=== PATIENT | female | born 1980 | race Caucasian/White ===

== ENCOUNTER 2018-10-09 09:48 | Emergency (ER) | payer BC, SELFPAY ==
--- NOTE | 2018-10-09 09:54 | NUR.NOTE ---
pt states that her lower back left shi 10/10 pain for past 4 days pt states that she has been able to make a dental apoint ment next week but can no longer deal with this pain. pt had an script of amox at home that she had juliann taking thinking that her tooth was infected however does not know the dosage
[2018-10-09 09:56] VITALS: BP 153/85; PULSE 68; RESP 18; TEMP 36.4; O2SAT 99
--- NOTE | 2018-10-09 10:12 | ED.GENADUL_ITS ---
Discharge Plan Disposition Patient Disposition: HOME Condition: Stable Discharge Details Chief Complaint: DentalOral Clinical Impression: Pain, dental Primary Care Provider: Jeremias Costello ED Provider: Thomas Eagle Home Meds and New Rx's Prescriptions: New amoxicillin-pot clavulanate 875-125 mg tablet 1 tab PO BID Qty: 14 RF: 0 Discharge Instructions Instructions: Toothache (ED) Additional Instructions: For pain control please take 650-1000 mg of Tylenol along with 600 mg of Motrin every 6 hours as needed for pain control. You may also apply ice pack to your face. If you notice any swelling to your face, fever, or worsening of symptoms you may start the prescribed antibiotic otherwise continue to do appropriate pain control until you see your dentist next week. If you notice any swelling to your tongue or underneath your tongue or to the back your throat please return to the emergency department for reassessment. Referrals: Primary Care Provider [Outside] (Please follow-up with your dental provider as scheduled for appropriate definitive care of your dental pain) Medical Decision Making Patient presenting to the emergency department for chief complaint of dental pain. Patient states that this is been going on for the past 4 days and she took approximately 2-1/2 days worth of Augmentin which did not help her symptoms. She is intermittently and sporadically been using Motrin and Tylenol with minimal benefit. She does state the tooth affected is in her right molar and was previously fractured years ago. Patient denies any fever chills, difficulty breathing, or other symptoms. Physical exam shows a partially fractured tooth #31 without signs of fluctuance, erythema, and otherwise nondiagnostic exam. Patient states that due to this pain being different than previous episodes of dental pain she is concerned about abscess. At this point I see no obvious signs of infection or abscess and thoroughly discussed with patient signs and symptoms of this. Patient does state that she feels some elevation of the tooth but again on physical exam I do not see any obvious signs of infection. Given upcoming weekend did discuss with patient pocket prescription for continued Augmentin and that she may wait 24 hours for look for thoroughly discussed symptoms to begin this medication otherwise appropriate pain control was discussed with patient which she stated she had not been consistent about controlling her pain. Return precautions discussed. After discussion of diagnosis and plan of care patient has no further needs, questions, or concerns and states clear understanding to return to the emergency department for any worsening symptoms. HPI General Mode of arrival: ambulatory . Date/Time Provider Initiated Documentation: 10/09/18 09:57 . Limitations to Documentation: no limitations . Information obtained by: patient . History of Present Illness 38 year old F presents to the emergency department with the chief complaint of Dental pain, described as moderate, with intensity rated at 6. Quality is described as sharp, and is localized to the mouth. Patient started experiencing this day(s) (4) and it has been constant. No relieving factors improve symptom(s), Patient notes no other symptoms.. Patient did receive the following treatments prior to arrival, NSAID Related Data Home Medications Medication Instructions Recorded Confirmed amoxicillin-pot clavulanate 1 tab PO BID #14 tab 10/09/18 Previous Rx's Medication Instructions Recorded amoxicillin-pot clavulanate 1 tab PO BID #14 tab 10/09/18 Allergies Allergy/AdvReac Type Severity Reaction Status Date / Time erythromycin base AdvReac Severe Nausea Unverified 10/09/18 09:58 [Erythromycin Base] General Stated Complaint: DentalOral GINA: 4 Review of Systems Constitutional Denies chills and Denies fever(s) ENT Reports as per HPI, Denies change in voice, Reports dental pain, Denies throat swelling and Denies tongue swelling Cardiovascular Denies chest pain and Denies dyspnea Respiratory Denies dyspnea, Denies stridor and Denies wheezing Allergic/Immunologic Denies throat swelling, Denies tongue swelling and Denies wheezing PFSH Family History Mother No problems noted. Father Diabetes Essential hypertension Heart disease Hyperlipidemia Brother No problems noted. Grandfather Heart disease Stroke Grandfather Neoplasm Grandmother Heart disease Grandmother Diabetes Essential hypertension Hyperlipidemia Son No problems noted. Daughter No problems noted. Maternal Uncle Neoplasm Maternal Aunt Heart disease Hyperlipidemia Great Maternal Grandmother Neoplasm Social History Smoking/Tobacco Use Status: Never Alcohol Intake: never Drug use: Never Substance use type: does not use Do you feel safe at home: Yes Do you feel safe in your relationship?: Yes Exam Const General: cooperative Orientation: alert, awake and oriented x3 Limitations: mental status not altered HENMT Head: normal to inspection, normocephalic and atraumatic Ears: hearing grossly normal bilaterally, normal mastoids bilaterally and no periauricular adenopathy General nose exam: external nose normal Mouth: oropharynx normal, no drooling, no muffled voice, normal tongue and no trismus Teeth and gingiva: caries and other (Partially fractured tooth #31) Throat: posterior oropharynx normal, tonsils normal and uvula midline Eyes General: appearance normal, both eyes and all related structures Pupils: PERRL Neck Neck: normal visual inspection, full ROM, no lymphadenopathy, no meningeal signs, trachea midline, supple, no anterior neck swelling and no midline deformity Resp Effort & Inspection: normal respiratory effort and able to speak in complete sentences Course Vital Signs Temperature 36.4 C 10/09/18 09:56 Pulse 68 10/09/18 09:56 Respiratory Rate 18 10/09/18 09:56 Blood Pressure 153/85 H 10/09/18 09:56 Pulse Oximetry 99 10/09/18 09:56 Temperature 36.4 C 10/09/18 09:56 Temperature Source Skin 10/09/18 09:56 Pulse 68 10/09/18 09:56 Respiratory Rate 18 10/09/18 09:56 Respiratory Effort 10/09/18 09:58 Blood Pressure 153/85 H 10/09/18 09:56 Blood Pressure Position Sitting 10/09/18 09:56 Pulse Oximetry 99 10/09/18 09:56 Oxygen Delivery Method Room Air 10/09/18 09:56 Oxygen Flow Rate 0 10/09/18 09:56 Pain Level 6 10/09/18 09:56
--- NOTE | 2018-10-09 10:17 | NUR.NOTE ---
pt states that when she woke up at 0800 she had abdominal pain nausea vomiting and liquid stools. pt states that her son had the same simptoms for the past few days
== END 2018-10-09 10:30 | disposition home or self-care (01) ==
LOC: ER 10:17
PROVIDERS: Emergency Provider Nurse Practitioner Family; PCP Emergency Medicine
DX: R68.84 Jaw pain (principal); S02.5XXA Fracture of tooth (traumatic), initial encounter for closed fracture; X58.XXXA Exposure to other specified factors, initial encounter
CPT/HCPCS: 99283

== ENCOUNTER 2018-11-23 09:11 | Outpatient (CLI) | payer BC, SELFPAY ==
[2018-11-23 11:03] LABS: ALT 55 U/L (12-78); AST 24 U/L (15-37); Albumin 3.8 g/dL (3.4-5.0); Alkaline Phosphatase 101 U/L (46-116); Anion Gap 8.9 mmol/L (3-11); BUN 11 mg/dL (7-18); Bilirubin, Total 0.7 mg/dL (0.2-1.0); CO2 28.1 mmol/L (21.0-32.0); CREATININE 0.79 mg/dL (0.55-1.02); Calcium 9.3 mg/dL (8.5-10.1); Chloride 101 mmol/L (98-107); Glucose 99 mg/dL (70-100); Potassium 4.5 mmol/L (3.5-5.1); Sodium 138 mmol/L (136-145); Total Protein 7.3 g/dL (6.4-8.2)
[2018-11-23 11:08] LABS: Abs Immature Grans 0.02 k/cumm (0.0-0.09); Absolute Basophil Count 0.02 k/cumm (0.0-0.2); Absolute Eosinophil Count 0.02 k/cumm (0.0-0.7); Absolute Lymphocyte Count 0.66 k/cumm (1.2-3.4); Absolute Monocyte Count 0.71 k/cumm (0.11-0.7); Absolute Neutrophil Count 4.84 k/cumm (1.2-6.7); Basophils % 0.3; Eosinophils % 0.3; HCT 34.9 % (36.0-46.0); HGB 10.5 g/dL (12.0-15.5); Immature Grans % 0.3; Lymphocytes % 10.5; Mean Corp. HGB Concentration 30.1 g/dL (32.0-36.0); Mean Corpuscular Hemoglobin 23.5 pg (27.0-33.0); Mean Corpuscular Volume 78.3 fL (80-95); Mean Platelet Volume 10.5 fL (8.0-11.0); Monocytes % 11.3; Neutrophils % 77.3; Platelet Count 336 x1000/uL (130-400); RBC 4.46 m/cumm (4.00-5.20); RBC Distribution Width 15.7 % (11.7-14.6); White Blood Cell Count 6.27 k/cumm (4.4-10.8)
[2018-11-23 11:26] LABS: Bilirubin Negative (Negative); Blood Trace-intact (Negative); Clarity Sl Cloudy; Glucose Negative (Negative); Ketones Negative (Negative); Leukocyte Esterase Trace (Negative); Nitrite Negative (Negative)
[2018-11-23 11:36] LABS: Bacteria Many HPF (Negative); C & S Indicated? Yes; Casts Negative LPF (Negative); Crystals Negative HPF (Negative); Epithelial Cells Few HPF (Negative); Mucus Negative (Negative); WBC >50 HPF (0-5)
== END 2018-11-23 09:31 ==
PROVIDERS: PCP Emergency Medicine
DX: N23 Unspecified renal colic (principal); N39.0 Urinary tract infection, site not specified; R50.9 Fever, unspecified
CPT/HCPCS: 36415; 80053; 87077; 81003; 81015; 85025; 87086; 87186

== ENCOUNTER 2018-11-23 13:19 | Outpatient (CLI) | payer BC, SELFPAY ==
--- NOTE | 2018-11-23 13:00 | DI.US_ITS ---
SYMPTOMS/DIAGNOSIS: URINARY TRACT INFECTION, RIGHT FLANK PAIN AND FEVER, N23, N39.9, R50.9 RENAL ULTRASOUND: Routine examination. The right kidney measures 13 cm long, the left kidney measures 12.6 cm long. No renal mass, calculus or obstruction is seen. There is symmetric blood flow to the kidneys. The prevoid urinary bladder volume is 105 cc. The bladder wall appears smooth. No intraluminal masses are seen. Both ureteral jets are visualized. The postvoid urinary bladder volume is 2 cc. IMPRESSION: Negative renal ultrasound.
== END 2018-11-23 13:39 ==
PROVIDERS: PCP Emergency Medicine
DX: N23 Unspecified renal colic (principal); N39.0 Urinary tract infection, site not specified; R50.9 Fever, unspecified
CPT/HCPCS: 76770

== ENCOUNTER 2018-12-05 05:31 | Emergency (ER) | payer BC, SELFPAY ==
[2018-12-05 05:35] VITALS: BP 151/81; PULSE 77; RESP 18; TEMP 36.6; O2SAT 98
--- NOTE | 2018-12-05 05:44 | W.ED.GENAD ---
Discharge Plan Disposition Patient Disposition: HOME Condition: Good Discharge Details Chief Complaint: DentalOral Clinical Impression: Abscess, dental Primary Care Provider: Jeremias Costello ED Provider: Kale Arora Meds and New Rx's Prescriptions: New amoxicillin-pot clavulanate 875-125 mg tablet 1 tab PO BID Qty: 14 RF: 0 Discharge Instructions Instructions: Dental Abscess (ED) Additional Instructions: Augmentin as prescribed. Ibuprofen and acetaminophen as needed for pain. Follow-up with dentist on Friday as planned. Return to ED for persistent fevers, worsening facial pain/swelling, difficulty breathing, inability to swallow. Medical Decision Making Patient with dental infection/abscess which has self drained on its own. There is some facial swelling submandibular/angle of the jaw area. We will start her on Augmentin. She has dental appointment on Friday. Motrin or Tylenol as needed for pain. Return to ED for fever, worsening facial swelling, difficulty breathing, inability to swallow. HPI General Mode of arrival: ambulatory. Date/Time Provider Initiated Documentation: 12/05/18 05:43. Limitations to Documentation: no limitations. Information obtained by: patient. HPI Narrative: Patient presents with dental pain. She was seen here a couple months ago with the same. She was treated with antibiotics but did not follow-up with a dentist. This week discomfort has returned. She started to notice some swelling last night. This morning she felt something let go had some drainage in her mouth. She has had no fever. She has no difficulty swallowing. She has no difficulty breathing. She comes in for evaluation this morning. She does have a dental appointment on Friday. Related Data Home Medications Medication Instructions Recorded Confirmed amoxicillin-pot clavulanate 1 tab PO BID #14 tab 12/05/18 Previous Rx's Medication Instructions Recorded amoxicillin-pot clavulanate 1 tab PO BID #14 tab 12/05/18 Allergies Allergy/AdvReac Type Severity Reaction Status Date / Time erythromycin base AdvReac Severe Nausea Verified 12/05/18 05:39 [Erythromycin Base] General Stated Complaint: DentalOral GINA: 4 Review of Systems Constitutional Denies fever(s) ENT Reports dental pain, Denies neck pain and Denies throat swelling Cardiovascular Denies dyspnea Respiratory Denies dyspnea Musculoskeletal Denies neck pain Allergic/Immunologic Denies throat swelling COUNTS INCLUDE 234 BEDS AT THE [facility] Surgical History History of section (Inactive) S/P VSD repair (Inactive) Social History Smoking/Tobacco Use Status: Never Alcohol Intake: never Drug use: Never Substance use type: does not use Do you feel safe at home: Yes Do you feel safe in your relationship?: Yes Exam Const General: cooperative and no acute distress Orientation: alert and oriented x3 HENMT Face and sinus: no erythema, edema on the right (submandibular/angle of jaw area) and no fluctuance Teeth and gingiva: abnormal tooth or associated gingiva (tooth 31 with decay/missing filling) and gingiva abnormal (drainage on inside gingival area of tooth 31) with purulent discharge Throat: posterior oropharynx normal Course Vital Signs Temperature 97.8 F 12/05/18 05:35 Pulse 77 12/05/18 05:35 Respiratory Rate 18 12/05/18 05:35 Blood Pressure 151/81 H 12/05/18 05:35 Pulse Oximetry 98 12/05/18 05:35 Temperature 97.8 F 12/05/18 05:35 Temperature Source Temporal Artery Scan 12/05/18 05:35 Pulse 77 12/05/18 05:35 Respiratory Rate 18 12/05/18 05:35 Respiratory Effort Non-Labored 12/05/18 05:35 Blood Pressure 151/81 H 12/05/18 05:35 Blood Pressure Position Sitting 12/05/18 05:35 Pulse Oximetry 98 12/05/18 05:35 Oxygen Delivery Method Room Air 12/05/18 05:35 Oxygen Flow Rate 0 12/05/18 05:35 Pain Level 8 12/05/18 05:40
--- NOTE | 2018-12-05 05:48 | ED.GENADUL_ITS ---
Discharge Plan Disposition Patient Disposition: HOME Condition: Good Discharge Details Chief Complaint: DentalOral Clinical Impression: Abscess, dental Primary Care Provider: Jeremias Costello ED Provider: Kale Arora Meds and New Rx's Prescriptions: New amoxicillin-pot clavulanate 875-125 mg tablet 1 tab PO BID Qty: 14 RF: 0 Discharge Instructions Instructions: Dental Abscess (ED) Additional Instructions: Augmentin as prescribed. Ibuprofen and acetaminophen as needed for pain. Follow-up with dentist on Friday as planned. Return to ED for persistent fevers , worsening facial pain/swelling, difficulty breathing, inability to swallow. Medical Decision Making Patient with dental infection/abscess which has self drained on its own. There is some facial swelling submandibular/angle of the jaw area. We will start her on Augmentin. She has dental appointment on Friday. Motrin or Tylenol as needed for pain. Return to ED for fever, worsening facial swelling, difficulty breathing, inability to swallow. HPI General Mode of arrival: ambulatory . Date/Time Provider Initiated Documentation: 12/05/18 05:43 . Limitations to Documentation: no limitations . Information obtained by: patient . HPI Narrative: Patient presents with dental pain. She was seen here a couple months ago with the same. She was treated with antibiotics but did not follow-up with a dentist. This week discomfort has returned. She started to notice some swelling last night. This morning she felt something let go had some drainage in her mouth. She has had no fever. She has no difficulty swallowing. She has no difficulty breathing. She comes in for evaluation this morning. She does have a dental appointment on Friday. Related Data Home Medications Medication Instructions Recorded Confirmed amoxicillin-pot clavulanate 1 tab PO BID #14 tab 12/05/18 Previous Rx's Medication Instructions Recorded amoxicillin-pot clavulanate 1 tab PO BID #14 tab 12/05/18 Allergies Allergy/AdvReac Type Severity Reaction Status Date / Time erythromycin base AdvReac Severe Nausea Verified 12/05/18 05:39 [Erythromycin Base] General Stated Complaint: DentalOral GINA: 4 Review of Systems Constitutional Denies fever(s) ENT Reports dental pain, Denies neck pain and Denies throat swelling Cardiovascular Denies dyspnea Respiratory Denies dyspnea Musculoskeletal Denies neck pain Allergic/Immunologic Denies throat swelling [facility] Surgical History History of section (Inactive) S/P VSD repair (Inactive) Social History Smoking/Tobacco Use Status: Never Alcohol Intake: never Drug use: Never Substance use type: does not use Do you feel safe at home: Yes Do you feel safe in your relationship?: Yes Exam Const General: cooperative and no acute distress Orientation: alert and oriented x3 HENMT Face and sinus: no erythema, edema on the right (submandibular/angle of jaw area) and no fluctuance Teeth and gingiva: abnormal tooth or associated gingiva (tooth 31 with decay/missing filling) and gingiva abnormal (drainage on inside gingival area of tooth 31) with purulent discharge Throat: posterior oropharynx normal Course Vital Signs Temperature 97.8 F 12/05/18 05:35 Pulse 77 12/05/18 05:35 Respiratory Rate 18 12/05/18 05:35 Blood Pressure 151/81 H 12/05/18 05:35 Pulse Oximetry 98 12/05/18 05:35 Temperature 97.8 F 12/05/18 05:35 Temperature Source Temporal Artery Scan 12/05/18 05:35 Pulse 77 12/05/18 05:35 Respiratory Rate 18 12/05/18 05:35 Respiratory Effort Non-Labored 12/05/18 05:35 Blood Pressure 151/81 H 12/05/18 05:35 Blood Pressure Position Sitting 12/05/18 05:35 Pulse Oximetry 98 12/05/18 05:35 Oxygen Delivery Method Room Air 12/05/18 05:35 Oxygen Flow Rate 0 12/05/18 05:35 Pain Level 8 12/05/18 05:40
[2018-12-05] MEDS: Amoxicillin 875/Clav. 125 TAB PO (06:01)
== END 2018-12-05 06:07 | disposition home or self-care (01) ==
PROVIDERS: Emergency Provider Emergency Medicine; PCP Emergency Medicine
DX: K04.7 Periapical abscess without sinus (principal)
CPT/HCPCS: 99282

== ENCOUNTER 2018-12-07 14:51 | Emergency (ER) | payer BC, SELFPAY ==
[2018-12-07 14:57] VITALS: BP 137/75; PULSE 88; RESP 16; TEMP 37.1; O2SAT 98
--- NOTE | 2018-12-07 14:59 | W.ED.GENAD ---
Discharge Plan Disposition Patient Disposition: HOME Condition: Stable Discharge Details Chief Complaint: DentalOral Clinical Impression: Dental abscess Primary Care Provider: Jeremias Costello ED Provider: Marisol Fitzgerald Home Meds and New Rx's Prescriptions: New clindamycin HCl 150 mg capsule 450 mg PO QID 7 Days Qty: 84 RF: 0 Discontinued amoxicillin-pot clavulanate 875-125 mg tablet 1 tab PO BID Qty: 14 RF: 0 Discharge Instructions Instructions: Dental Abscess (ED) Additional Instructions: Take the antibiotics until finished. Stop taking the augmentin. Alternate tylenol and motrin as needed and directed for pain. Call your dentist today to see if they can see you tomorrow instead of 2 days from now for a follow up appointment. Return immediately to the emergency department if you develop any worsening symptoms of difficulty swallowing, difficulty breathing, fever or worsening swelling or pain. Discharge Data Discharge Physician: Marisol Fitzgerald Medical Decision Making 38yo F w/ R Lower dental pain x 4 days and R sided lower facial/jaw swelling x 2 days. Seen here 2 days ago and noted to have draining abscess and was strated on augmentin. No fluctuance was noted and I and D not done at that time as abscess was draining. Pt here with worsening R sided facial swelling. She appears nontoxic. No drooling, able to swallow secretions, speaking in full sentences. Her R submandibular area is significantly indurated and tender. She has some restriction with opening mouth but no significantly concerning trismus. #31 tooth (R 3rd lower molar) is noted to be draining pus on lingual wall but no additional fluctuance noted to palpation or inspection. A bedside US was done overlying R facial swelling and there was a questionable abscess. Plan was for I and D posterior to tooth to access for deeper abscess but pt is declining this at this time. D/w pt that as she has indurated submandibular swelling, would recommend I and D to at least assess for an abscess that may be drainable but she would rather hold on this at this time. She was told by her dentist's office that she would likely not need an I and D and just switch her antibiotics so she would rather do this and follow up with her dentist. She was informed of the risks of worsening symptoms and airway compromise that may go along with a diagnosis of Henrique's angina. Also discussed obtaining imaging but pt would rather hold on this at this time. She was given a dose a dose of clindamycin here and script for home. She was instructed to stop the augmentin and gargle with salt water and listerine. She was instructed to call her dentist to see if they can see her tomorrow instead of her appointment in 2 days. She was instructed to return here immediately with any worsening symptoms of difficulty swallowing, breathing, fever, or worsening swelling. HPI General Mode of arrival: ambulatory. Date/Time Provider Initiated Documentation: 12/07/18 14:57. Limitations to Documentation: no limitations. Information obtained by: patient. HPI Narrative: Pt is a 38yo F who presents to the ED w/ a c/o dental pain for 4 days and R sided lower facial swelling for 2 days. Pt was seen here 2 days ago for the same complaint and was noted to have pus drainage but no area of fluctuance and was sent home with augmentin. Pt states she was supposed to see the dentist today but they had to reschedule her appointment for 3 days from now and she was unable to obtain an appointment with her pcp. Pt denies fever, difficulty swallowing or breathing, She states she has taken a total of 6 doses of augmentin and admits to improvement in dental pain but worsening R sided facial swelling. Pt states she was told by the dentist that she might need a different antibiotic. Related Data Home Medications Medication Instructions Recorded Confirmed clindamycin HCl 450 mg PO QID 7 Days #84 cap 12/07/18 Previous Rx's Medication Instructions Recorded clindamycin HCl 450 mg PO QID 7 Days #84 cap 12/07/18 Allergies Allergy/AdvReac Type Severity Reaction Status Date / Time erythromycin base AdvReac Severe Nausea Verified 12/07/18 15:04 [Erythromycin Base] General GINA: 4 Review of Systems Review of Systems All systems reviewed & are unremarkable except as noted in HPI and below Constitutional Reports as per HPI, Denies chills and Denies fever(s) Eyes Denies blurry vision ENT Reports dental pain, Denies dizziness, Denies sore throat and Denies throat swelling Cardiovascular Denies chest pain and Denies dyspnea Respiratory Denies cough and Denies dyspnea Gastrointestinal Denies abdominal pain, Denies diarrhea and Denies vomiting Genitourinary Denies hematuria and Denies dysuria Musculoskeletal Denies back pain and Denies numbness Integumentary/Breasts Denies lesions and Denies rash Neurologic Denies dizziness, Denies focal weakness and Denies numbness Allergic/Immunologic Denies throat swelling [facility] Surgical History History of section (Inactive) S/P VSD repair (Inactive) Social History Smoking/Tobacco Use Status: Never Alcohol Intake: never Drug use: Never Substance use type: does not use Do you feel safe at home: Yes Do you feel safe in your relationship?: Yes Exam Const General: cooperative, healthy appearing and no acute distress HENMT Head: normal to inspection Ears: hearing grossly normal bilaterally, external ears normal and TM's normal bilaterally General nose exam: external nose normal and nares normal Face images: 1. Moderate indurated tender R sided facial swelling R submandibular region Mouth: oral mucosae normal, no drooling, restricted motion (in opening mouth but not significant trismus) and other (No induration, swelling or fluctuance noted to floor of mouth. ) Teeth image: 1. Tooth #31 with minimal tenderness to palpation with minimal erythema/edema noted on lingual wall mucosa with a 2x2mm opening draining yellow pus. No fluctuance noted on lingual or buccal wall of this tooth or surrounding teeth. Possible impacted wisdom tooth noted behind this 3rd molar. Throat: posterior oropharynx normal Eyes General: appearance normal, both eyes and all related structures Neck Neck: normal visual inspection, no lymphadenopathy, trachea midline, supple and no anterior neck swelling Resp Effort & Inspection: normal respiratory effort and able to speak in complete sentences Cardio Rate: regular rate Skin General skin exam: no rashes or lesions noted Neuro General: alert, awake and oriented x3 Motor: muscle tone normal throughout Extrem General: normal to inspection and full ROM Psych Appearance: grossly normal Affect: normal affect
[2018-12-07] MEDS: Clindamycin 150 MG CAP 450 MG PO (15:33)
== END 2018-12-07 16:08 | disposition home or self-care (01) ==
PROVIDERS: Emergency Provider Physician Assistant; PCP Emergency Medicine
DX: K04.7 Periapical abscess without sinus (principal)
CPT/HCPCS: 99283

== ENCOUNTER 2020-07-23 19:08 | Emergency (ER) | payer BC, SELFPAY ==
[2020-07-23 19:11] VITALS: BP 155/93; PULSE 99; RESP 16; TEMP 36.7; O2SAT 100
--- NOTE | 2020-07-23 19:18 | W.ED.GENAD ---
Discharge Plan Disposition Patient Disposition: HOME Condition: Good Discharge Details Clinical Impression: Pain, dental, Dental infection Primary Care Provider: Jeremias Costello ED Provider: Juan Carlos Swenson Home Meds and New Rx's Prescriptions: New amoxicillin-pot clavulanate [Augmentin] 875-125 mg tablet 1 tab PO BID 6 Days Qty: 12 RF: 0 Discharge Instructions Instructions: Amoxicillin/Clavulanate Potassium (By mouth), Toothache (ED) Additional Instructions: At this time you have evidence of a dental infection, there does not currently appear to be an abscess that can be drained. If you notice any worsening of your symptoms, or any new symptoms such as worsening swelling, vomiting, diarrhea, fever, chills, shortness of breath, chest pain, numbness, weakness, or fainting , please return immediately to the emergency department for reevaluation. Please follow up with your dentist provider as soon as possible for reassessment and reevaluation. As always, it was a pleasure participating in your medical care today. Referrals: Jeremias Costello, [Primary Care Provider] - Medical Decision Making 40-year-old female with a past medical history of a known murmur and ventricular septal defect that was surgically repaired, she presents today for evaluation of right lower dental pain. She has an appointment with her dentist coming up, but noticed some pain and swelling for the last 2 to 3 days. Pain is minimal. She was recommended by her dentist to come be evaluated. She denies any difficulty swallowing, difficulty controlling secretions. She denies any fever or chills. No other complaints at this time. Exam demonstrates minimal swelling over the right lower molar region, no fluctuance or palpable abscess that I can appreciate to drain. No signs of Ludewig's angina or airway compromise. Patient has a very minimal chronic murmur that is appreciated, however she shows no signs at this time of endocarditis clinically, no fever or chills. Patient does not want a dental block at this time. We will start the patient on Augmentin twice daily, will give her 2 pills here to start her dose. Recommend Tylenol Motrin and close follow-up with dentist. Discussed red flags which to return. I have extensively reviewed the treatment plan and discharge instructions with the patient. I have addressed all patient concerns at this time. The patient was made aware of what symptoms to monitor for that would warrant a return to the emergency department. Discussed the plan with the patient, they demonstrate verbal understanding and agreement with our assessment and plan at this time. The documentation in this chart was dictated using [employer] dictation software. Please excuse any dictation errors. HPI General Date/Time Provider Initiated Documentation: 07/23/20 19:09. HPI Narrative: 40-year-old female with a past medical history of a known murmur and ventricular septal defect that was surgically repaired, still present ASD, she presents today for evaluation of right lower dental pain. She has an appointment with her dentist coming up, but noticed some pain and swelling for the last 2 to 3 days. Pain is minimal. She was recommended by her dentist to come be evaluated. She denies any difficulty swallowing, difficulty controlling secretions. She denies any fever or chills. No other complaints at this time. Related Data Home Medications Medication Instructions Recorded Confirmed amoxicillin-pot clavulanate 1 tab PO BID 6 Days #12 tab 07/23/20 [Augmentin] Previous Rx's Medication Instructions Recorded amoxicillin-pot clavulanate 1 tab PO BID 6 Days #12 tab 07/23/20 [Augmentin] Allergies Allergy/AdvReac Type Severity Reaction Status Date / Time erythromycin base AdvReac Severe Nausea Verified 08/11/19 15:15 [Erythromycin Base] General Stated Complaint: DentalOral GINA: 4 Review of Systems All systems reviewed & are unremarkable except as noted in HPI and below PFSH Surgical History History of section S/P VSD repair Family History Mother No problems noted. Father Diabetes Essential hypertension Heart disease Hyperlipidemia Brother No problems noted. Grandfather Heart disease Stroke Grandfather Neoplasm COLON Grandmother Heart disease Grandmother Diabetes Essential hypertension Hyperlipidemia Son No problems noted. Daughter No problems noted. Maternal Uncle Neoplasm COLON Maternal Aunt Heart disease Hyperlipidemia Great Maternal Grandmother Neoplasm COLON Social History Smoking/Tobacco Use Status: Never Smoking risk assessment performed?: Yes Alcohol Intake: never Drug use: Never Substance use type: does not use Do you feel safe at home: Yes Do you feel safe in your relationship?: Yes Exam Narrative Exam Narrative: 1.Const: Well-nourished, Well-developed, appearing stated age 2.Eyes: PERRL, no conjunctival injection, and symmetrical lids. 3.ENT: Atraumatic external nose and ears. Moist MM. Neck: Symmetric, trachea midline, No thyromegaly. Mild swelling over the right lower lateral aspect of the jaw, palpation reveals mild dental caries in this area the posterior molar, no evidence of periapical swelling or palpable fluctuance or abscess that I can appreciate at this time. No signs of Ludewig's angina. 4.CVS: +S1/S2, questionable minimal murmur, no gallops. Peripheral pulses 2+ and equal in all extremities. Brisk capillary refill in all extremities. 5.RESP: Unlabored respiratory effort. Clear to auscultation bilaterally. No wheezes rales or rhonchi 6.GI: Soft, Nontender/Nondistended, No hepatosplenomegaly. No guarding or rebound. 7.MSK: Normocephalic/Atraumatic, Extremities w/o deformity or ttp No cyanosis or clubbing, Normal movement of all extremities 8.Skin: Warm, Dry. No rashes or lesions. 9.Neuro: fittings tightener II-XII grossly intact. Sensation grossly intact, no focal neurologic deficits. 10.Psych: (AAO) x3. Appropriate mood and affect Course Vital Signs Vital signs: Vital Signs Temperature 36.7 C 07/23/20 19:11 Pulse 99 H 07/23/20 19:11 Respiratory Rate 16 07/23/20 19:11 Blood Pressure 155/93 H 07/23/20 19:11 Pulse Oximetry 100 07/23/20 19:11 Temperature 36.7 C 07/23/20 19:11 Temperature Source Skin 07/23/20 19:11 Pulse 99 H 07/23/20 19:11 Respiratory Rate 16 07/23/20 19:11 Respiratory Effort 07/23/20 19:16 Blood Pressure 155/93 H 07/23/20 19:11 Blood Pressure Position Sitting 07/23/20 19:11 Pulse Oximetry 100 07/23/20 19:11 Oxygen Delivery Method Room Air 07/23/20 19:11 Oxygen Flow Rate 0 07/23/20 19:11 Pain Level 5 07/23/20 19:16
[2020-07-23] MEDS: Amox. 875/Clav. 125, 2 TABS/BTL 1 TAB PO (19:23)
== END 2020-07-23 19:25 | disposition home or self-care (01) ==
PROVIDERS: Emergency Provider Student in an Organized Health Care Education/Training Program; PCP Emergency Medicine
DX: R68.84 Jaw pain (principal); K04.7 Periapical abscess without sinus
CPT/HCPCS: 99283

== ENCOUNTER 2020-08-30 02:06 | Outpatient (CLI) | payer BC, SELFPAY ==
[2020-08-30 12:26] LABS: Abs Immature Grans 0.02 10^3/uL (0.0-0.06); Absolute Basophil Count 0.03 10^3/uL (0.0-0.2); Absolute Eosinophil Count 0.12 10^3/uL (0.0-0.7); Absolute Lymphocyte Count 1.68 10^3/uL (1.2-3.4); Absolute Monocyte Count 0.33 10^3/uL (0.1-0.8); Absolute Neutrophil Count 3.16 10^3/uL (1.2-6.7); Basophils % 0.6; Eosinophils % 2.2; HCT 34.7 % (36.0-46.0); Immature Grans % 0.4; Lymphocytes % 31.5; MCH 21.6 pg (27.0-33.0); MCHC 28.8 % (32.0-36.0); MCV 74.9 fL (80-95); Monocytes % 6.2; Neutrophils % 59.1; Nucleated RBC 0 %; RBC 4.63 10^6/uL (3.93-5.22); RDW 15.6 % (11.7-14.6); RDW-SD 42.4 fL; WBC 5.34 10^3/uL (4.4-10.8)
[2020-08-30 12:42] LABS: Calculated LDL 67 mg/dL (<100); Cholesterol 143 mg/dL (<200); HDL Cholesterol 38 mg/dL (40-60); TSH (W/Ref FT4) 1.16 uIU/mL (0.36-3.74); Triglyceride 192 mg/dL (<150)
[2020-08-30 12:46] LABS: Diff Comment Diff Reviewed; Hypochromasia 2+; Microcytosis 2+; Ovalocytes 2+; Platelet Count 308 10^3/uL (130-400); Polychromasia Present
== END 2020-08-30 02:07 | disposition home or self-care (01) ==
LOC: LOS 02:06
PROVIDERS: Physician Assistant; PCP Emergency Medicine; Visit Provider Emergency Medicine
DX: Z00.00 Encounter for general adult medical examination without abnormal findings (principal); R63.5 Abnormal weight gain; F52.0 Hypoactive sexual desire disorder
CPT/HCPCS: 36415; 80061; 84443; 85025

== ENCOUNTER 2020-09-11 02:38 | Outpatient (CLI) | payer BC, SELFPAY ==
--- NOTE | 2020-09-11 06:45 | DI.MAMMO_ITS ---
EXAM: MG MAMMO SCREENING CLINICAL HISTORY: screening,Z12.39. TECHNIQUE: Bilateral full field digital CC and MLO mammographic images were obtained with 3D tomosyn thesis and utilizing computer aided detection (CAD). COMPARISON: None. This is a baseline mammogram on this 40-year-old patient. FINDINGS: The fibroglandular pattern is moderately dense, this decreasing the sensitivity of the mammogram for finding in underlying lesions. In the medial aspect of the right breast there are 2 nodules evident on 3D imaging, both medial to th e nipple and approximately 6 cm in from the nipple. The larger of these 2 asymmetric densities measu res 10 by 6 millimeters. The smaller measures 4 x 4 millimeters. Both are noncalcified. There is a lso suggestion of another nodule more posteriorly in the medial aspect of the left breast measuring a pproximately 5 x 4 millimeters. In the right breast on the 3D MLO view there is a asymmetric density-possible nodule measuring 9 by 6 millimeters, located approximately 9 centimetres in from the nipple. In the opposite-left breast there is a suggestion of a noncalcified nodular density measuring approxi mately 7 by 6 millimeters and located 5 cm in from the nipple. There is also another nodule more lat erally located in left breast measuring approximately 10 by 5 millimeters located 3 cm in from the ni pple. There are no malignant-appearing microcalcification groups in either breast. No significant architec tural distortion no skin thickening-traction. IMPRESSION: Bilateral breast nodules. Spot compression views and complete ultrasound of both breasts is recommen d. BI-RADS Category 0 - Assessment Incomplete: Need additional imaging evaluation Breast Density - Category C - Heterogeneously dense Breast density Category C or D implies that the patient has dense breast tissue. Dense breast tissue can make it harder to find cancer on a mammogram. Dense breast tissue is also associated with an incr eased risk of breast cancer. This information about the result of the mammogram report was provided to the patient to raise their awareness. Use this report when you speak with the patient about their risks for breast cancer, which includes their family history. At that time, you may recommend additional screening tests (Ultrasoun d or MRI) as these tests may add significant information. A negative radiographic report should not delay biopsy if a dominant or clinically suspicious mass is present. Up to ten percent of cancers are not identified on mammography. A negative report may reinforce clinical impression. Adenosis and dense breasts may obscure an underlying neoplasm. False positive reports average 6 to 10%. Patient will receive a letter notifying them of these results.
== END 2020-09-11 02:58 ==
DX: Z12.31 Encounter for screening mammogram for malignant neoplasm of breast (principal); R92.8 Other abnormal and inconclusive findings on diagnostic imaging of breast
CPT/HCPCS: 77063; 77067

== ENCOUNTER 2020-09-20 02:06 | Outpatient (CLI) | payer BC, SELFPAY ==
--- NOTE | 2020-09-20 | DI.US_ITS ---
EXAM: MG MAMMO SCREEN CALL BACK BI, US BREAST LT GOODMAN, US BREAST RT GOODMAN CLINICAL HISTORY: F/U MAMMO, RT BREAST NODULES,LT NODULAR DENSITY. TECHNIQUE: Craniocaudal and mediolateral oblique spot compression cc and MLO digital Mammography vie ws of the the right and left breast with Computer Aided Diagnosis followed by Tomosynthesis and bilat eral breast ultrasound. COMPARISON: MG MG MAMMO SCREENING from 09/11/2020 MG MG MAMMO SCREENING from 09/11/2020 US US BREAST RT LIMITED from 09/20/2020 US US BREAST LT LIMITED from 09/20/2020 FINDINGS: Left breast: Mammography/Tomosynthesis: Masses/Architectural Distortion: 2 small persistent circumscribed nodules in the upper outer quadrant . Microcalcifictions: No suspicious pleomorphic-type are seen. Skin Thickening/Nipple Retraction: None. Left breast US: Echotexture: Normal appearance of the glandular tissue. Shadowing: No suspicious foci. Solid lesions: The 12 o'clock position, 4 cm from the nipple, there is a cluster of cysts measuring 8 millimeters in greatest dimension. In the 1 o'clock position, 5 cm from the nipple, there is an add itional cyst measuring 1 cm in greatest dimension. Ductal dilation: None. Right breast: Mammography/Tomosynthesis: Masses/Architectural Distortion: There are 3 small persistent circumscribed nodules seen in the lower inner quadrant of right breast. No calcifications or architectural distortion is seen. Right breast US: In the 6 o'clock position, 5 centimeters from the nipple, there is a [address] versus lymph node or fibroadenoma. In the 3 o'clock position, 4 centimeters from nipple, there is a 3 millimeter cyst. Also in the 3 o'clock position, there is a smoothly marginated hypoechoic ovoi d nodule with a fatty hilum measuring 9 millimeters in length, consistent with an intramammary lymph node. No suspicious masses are seen. IMPRESSION: 1. No evidence of malignancy is noted. Benign findings are noted in both breasts. 2. Unless there is more urgent need, follow-up screening mammography is recommended, as per [employer] guidelines. 3. The findings were discussed with the patient on the date of the examination. BI-RADS Category 2 - Benign Findings Breast Density - Category C - Heterogeneously dense A mammogram that demonstrates density of C or D indicates the patient's breast tissue is dense. Dense breast tissue is very common and is not abnormal, but dense breast tissue can make it harder to find cancer on a mammogram. Also, dense breast tissue may increase their breast cancer risk. This informa tion about the result of the mammogram report was provided to the patient to raise their awareness. U se this report when you speak with the patient about their risks for breast cancer, which includes th eir family history. At that time, you may recommend for more screening tests (Ultrasound or MRI) as t hey might be useful based on their risk. A negative radiographic report should not delay biopsy if a dominant or clinically suspicious mass is present. Up to ten percent of cancers are not identified on mammography. A negative report may reinforce clinical impression. Adenosis and dense breasts may obscure an underlying neoplasm. False positive reports average 6 to 10%. Patient will receive a letter notifying them of these results.
== END 2020-09-20 02:26 ==
DX: Z12.31 Encounter for screening mammogram for malignant neoplasm of breast (principal); R92.8 Other abnormal and inconclusive findings on diagnostic imaging of breast; N60.11 Diffuse cystic mastopathy of right breast; N60.12 Diffuse cystic mastopathy of left breast
CPT/HCPCS: 76642; 77063; 77067

== ENCOUNTER 2021-01-30 14:15 | Outpatient (REF) | payer BC, SELFPAY ==
[2021-01-30 20:52] LABS: Bilirubin Negative (Negative); Blood Negative (Negative); Clarity Cloudy (Clear); Glucose Negative (Negative); Ketones Negative (Negative); Leukocyte Esterase Small (Negative); Nitrite Negative (Negative); Specific Gravity 1.025 (1.005-1.025); Urobilinogen 0.2 EU/dL (Up TO 0.2); pH 7.5 (5-8)
[2021-01-30 21:12] LABS: Bacteria Few HPF (Negative); C & S Indicated? No/Sq. Contamination; Crystals Few Amorphous HPF (Negative); Epithelial Cells Many HPF (Negative); Mucus Negative (Negative); Other Cells Few Spermatozoa (Negative); RBC 0-2 HPF (0-2)
== END 2021-01-30 14:16 | disposition home or self-care (01) ==
LOC: LBN 14:15
PROVIDERS: Visit Provider Family Medicine
DX: R35.0 Frequency of micturition (principal)
CPT/HCPCS: 81003; 81015

== ENCOUNTER 2023-06-22 11:42 | Emergency (ER) | payer BC, SELFPAY ==
[2023-06-22 11:45] VITALS: BP 148/75; PULSE 91; RESP 15; TEMP 36.7; O2SAT 100
[2023-06-22 11:49] VITALS: BP 148/75; PULSE 91; RESP 15; TEMP 36.7; O2SAT 100
--- NOTE | 2023-06-22 12:08 | W.ED.GENAD ---
HPI General Stated Complaint: DentalOral Mode of arrival: ambulatory. GINA: 4 Date/Time Provider Initiated Documentation: 06/22/23 11:59. Limitations to Documentation: no limitations. Information obtained by: patient. HPI Narrative: Time seen was 11:50 AM in the triage room. The patient is a 43-year-old female who has a history of a hole in her heart. She does have a history of a ventricular septal defect she has had intermittent dental pain for weeks to months. A week ago she was seen for left lower jaw pain at [facility] and referred to an oral surgeon in [place], [place] with whom she has an appointment next week. She presents today with right lower jaw pain which began 2 to 3 days ago. She has been alternating acetaminophen every 3 hours with ibuprofen as needed for pain. She denies any fevers or chills or change in voice. She denies any foul discharge. She has some mild swelling. No swelling of her throat or gums. No fever or chills. She states that it feels similar to a previous abscess that she has had in the past although it is not as severe. The pain is constant and 8-9 out of 10 in severity. It radiates to the right ear. The pain is aggravated by hot and cold. The patient has not had her wisdom teeth extracted Related Data Home Medications Medication Instructions Recorded Confirmed penicillin V potassium 500 mg 500 mg PO QID #40 tabs 06/22/23 tablet Previous Rx's Medication Instructions Recorded penicillin V potassium 500 mg 500 mg PO QID #40 tabs 06/22/23 tablet Allergies Allergy/AdvReac Type Severity Reaction Status Date / Time erythromycin base AdvReac Severe Nausea Verified 06/22/23 11:49 [Erythromycin Base] Review of Systems Narrative: see hpi PFSH All Active Problems (Updated 06/22/23 @ 12:12 by Margaret Hilton MD) Dentalgia (Acute) Dental caries (Acute) Increased body mass index (BMI) (Acute) Anemia (Chronic) Renal colic on right side (Acute) Surgical History S/P VSD repair History of section Family History Mother No problems noted. Father Diabetes Essential hypertension Heart disease Hyperlipidemia Brother No problems noted. Grandfather Heart disease Stroke Grandfather Neoplasm COLON Grandmother Heart disease Grandmother Diabetes Essential hypertension Hyperlipidemia Son No problems noted. Daughter No problems noted. Maternal Uncle Neoplasm COLON Maternal Aunt Heart disease Hyperlipidemia Great Maternal Grandmother Neoplasm COLON Social History Smoking/Tobacco Use Status: Never Smoking risk assessment performed?: Yes Alcohol Intake: never Drug use: Never Substance use type: does not use Counseling given: No Counseling provided: none Housing: house Do you feel safe at home: Yes Do you feel safe in your relationship?: Yes Exam Narrative Exam Narrative: She is a well-developed well-nourished female in no acute distress with no obvious facial swelling and normal phonation. She is mildly hypertensive with a blood pressure 140/75. Heart rate 91 she is not tachypneic or febrile her room air O2 sat is normal at 100% Const General: cooperative, healthy appearing, comfortable, no acute distress, well developed, well groomed and well hydrated Nutritional Appearance: average body habitus and well nourished Orientation: alert, awake and oriented x3 HENMT Head: normal to inspection, normocephalic and atraumatic Ears: hearing grossly normal bilaterally and external ears normal General nose exam: external nose normal, nares normal and no nasal discharge Face and sinus: normal facial exam and face symmetric Mouth: oral mucosae normal, lip normal, tongue normal, oropharynx normal, moist mucous membranes and other (Normal phonation. The patient is handling secretions.) Teeth and gingiva: gingiva normal, caries, fair dentition and other (Tooth 30 is noted to the gumline. No buccal cellulitis) Throat: posterior oropharynx normal and uvula midline Other: No evidence of Henrique's angina. No intraoral swelling. Handling secretions. Normal phonation no fluctuance Eyes General: appearance normal, both eyes and all related structures Eyelids: eyelids normal Conjunctivae: conjunctivae normal Sclera: sclerae normal Cornea: corneas normal Pupils: PERRL EOM: EOM intact bilaterally and No nystagmus Neck Neck: normal visual inspection, full ROM, no lymphadenopathy, no meningeal signs, trachea midline and supple Lymphatic: no lymphadenopathy noted Other: No significant submandibular adenopathy. No swelling of the anterior neck. Trachea is midline nontender. Chest Chest: normal inspection of the chest Resp Effort & Inspection: normal respiratory effort, able to speak in complete sentences, no audible wheezes, no nasal flaring, no respiratory distress, no retractions, no stridor, not tachypneic, no tracheal deviation, no use of accessory muscles, No prolonged expiratory phase and other (Normal inspiratory to expiratory ratio.) Auscultation: clear to auscultation bilaterally, no rales, no rhonchi, no wheezes and no rubs Tactile Fremitus: tactile fremitus absent Cardio Jugular venous pressure: no JVD Palpation: normal PMI Rate: regular rate Rhythm: regular rhythm Heart Sounds: S1 normal and S2 normal GI Inspection: normal to inspection and non-distended Palpation: soft, no hepatosplenomegaly, no guarding and nontender Percussion: normal to percussion Auscultation: normal bowel sounds Neuro General: patient alert, patient awake, patient oriented x3, moves all extremities, no meningeal signs, no focal motor deficits and CN's II-XI intact bilaterally Cranial Nerves: CN's II-XI intact bilaterally, PERRL, accommodation normal, EOM intact bilaterally, no nystagmus, facial strength normal, tongue midline, hearing normal and no nystagmus Cognition: normal cognition Speech: speech normal Gait: normal gait Motor: muscle tone normal throughout and strength 5/5 throughout Sensory Exam: no sensory deficits noted Extrem General: normal to inspection Psych Appearance: grossly normal Affect: normal affect Attitude: cooperative Thought Process: normal Thought Content: normal Insight: insight good Judgment: judgment good Other: The patient appears to have capacity make medical decisions. Course I have advised her to take penicillin with a probiotic and alternate acetaminophen every 3 hours with ibuprofen as needed for pain. I have advised to return if she has difficulty breathing talking or swallowing or for any new or worrisome symptoms. I have advised her to keep her appointment with the oral surgeon next week. She voiced understanding agree with discharge plan. All her questions and concerns were addressed prior to discharge. Vital Signs Vital signs: Vital Signs Temperature 36.7 C 06/22/23 11:45 Pulse 91 H 06/22/23 11:45 Respiratory Rate 15 06/22/23 11:45 Blood Pressure 148/75 H 06/22/23 11:45 Pulse Oximetry 100 06/22/23 11:45 Temperature 36.7 C 06/22/23 11:49 Temperature Source Temporal Artery Scan 06/22/23 11:49 Pulse 91 H 06/22/23 11:49 Respiratory Rate 15 06/22/23 11:49 Respiratory Effort Normal 06/22/23 11:48 Blood Pressure 148/75 H 06/22/23 11:49 Blood Pressure Position Sitting 06/22/23 11:49 Pulse Oximetry 100 06/22/23 11:49 Oxygen Delivery Method Room Air 06/22/23 11:49 Oxygen Flow Rate 0 06/22/23 11:49 Pain Level 9 06/22/23 11:49 Medical Decision Making This is a healthy 43-year-old female with a history of a VSD who presents with right lower dental pain. She has an appointment with an oral surgeon next week. There is no evidence of Henrique's angina or buccal cellulitis. There is no fluctuance or drainable abscess. My plan is to place her on penicillin 500 mg every 6 hours for 10 days. I have advised her to take a probiotic and alternate acetaminophen every 3 hours with ibuprofen as needed for pain. She has no evidence of a drainable abscess. She declined when I offered her narcotics. Quality:[facility] Health Related Social Needs: No Data to Display Discharge Plan Disposition Patient Disposition: Home Discharge Details Clinical Impression: Dental caries, Dentalgia Primary Care Provider: Quoc Ballesteros ED Provider: Margaret Hilton Home Meds and New Rx's Prescriptions: New penicillin V potassium 500 mg tablet 500 mg PO QID Qty: 40 0RF Discharge Instructions Instructions: Dental Caries (ED), Toothache (ED) Additional Instructions: 1. Start penicillin 500 mg every 6 hours for 10 days. We recommend you take a probiotic while on antibiotics. 2. Alternate acetaminophen every 3 hours with ibuprofen as needed for pain. 3. Keep your appointment with the oral surgeon in [place], [place]. 4. Return to the emergency department for any difficulty breathing talking or swallowing. Discharge Data Discharge Physician: Margaret Hilton
[2023-06-22] MEDS: Penicillin V POTASSIUM 500 MG TAB PO (12:17)
== END 2023-06-22 12:18 | disposition home or self-care (01) ==
LOC: ER 12:17
PROVIDERS: Emergency Provider Emergency Medicine Emergency Medical Services; PCP Nurse Practitioner Family
DX: R68.84 Jaw pain (principal); K02.9 Dental caries, unspecified; K08.89 Other specified disorders of teeth and supporting structures; I10 Essential (primary) hypertension; Z87.74 Personal history of (corrected) congenital malformations of heart and circulatory system
CPT/HCPCS: 99283

== ENCOUNTER 2024-07-13 11:13 | Outpatient (CLI) | payer BC, SELFPAY ==
[2024-07-13 07:46] LABS: Abs Immature Grans 0.03 10^3/uL (0.0-0.06); Absolute Basophil Count 0.04 10^3/uL (0.0-0.2); Absolute Eosinophil Count 0.17 10^3/uL (0.0-0.7); Absolute Lymphocyte Count 0.85 10^3/uL (1.2-3.4); Absolute Monocyte Count 0.33 10^3/uL (0.1-0.8); Absolute Neutrophil Count 3.29 10^3/uL (1.2-6.7); Basophils % 0.8 %; Eosinophils % 3.6 %; HCT 34.1 % (36.0-46.0); HGB 9.1 g/dL (11.2-15.7); Immature Grans % 0.6 %; MCH 17.8 pg (27.0-33.0); MCHC 26.7 % (32.0-36.0); MCV 67 fL (80-95); MPV 9.8 fL (8.0-11.0); Platelet Count 315 10^3/uL (130-400); RDW 18.7 % (11.7-14.6); RDW-SD 43.5 fL; WBC 4.71 10^3/uL (4.4-10.8)
[2024-07-13 07:58] LABS: Diff Comment RBC Morph Reviewed; Hypochromasia 2+; Microcytosis 2+
[2024-07-13 08:00] LABS: Hemoglobin A1C 5.6 % (<5.7)
[2024-07-13 08:42] LABS: ALT 25 U/L (14-59); AST 12 U/L (15-37); Albumin 3.8 g/dL (3.4-5.0); Alkaline Phosphatase 87 U/L (46-116); Anion Gap 9.7 mmol/L (3-11); BUN 15 mg/dL (7-18); Bilirubin, Total 0.94 mg/dL (0.2-1.0); CO2 26.3 mmol/L (21.0-32.0); CREATININE 0.8 mg/dL (0.55-1.02); Calcium 9.2 mg/dL (8.5-10.1); Calculated LDL 93 mg/dL (<100); Chloride 103 mmol/L (98-107); Cholesterol 164 mg/dL (<200); Estimated GFR 92.54 (mL/min/1.73m2); Ferritin 4 ng/mL (8-252); Folate 16.7 ng/mL (8.6-20.0); Glucose 122 mg/dL (74-106); HDL Cholesterol 54 mg/dL (40-60); Sodium 139 mmol/L (136-145); TSH (W/Ref FT4) 2.82 uIU/mL (0.36-3.74); Total Protein 7.6 g/dL (6.4-8.2); Triglyceride 87 mg/dL (<150); Vitamin B12 480 pg/mL (193-986); Vitamin D 25 Total 11.6 ng/mL (30-100)
[2024-07-13 08:53] LABS: Iron 16 ug/dL (50-170); Total Iron Binding Capacity 496 ug/dL (250-450); Transferrin Sat 3 % (15-50)
[2024-07-13 18:52] LABS: Hepatitis C Ab w Rflx HCV PCR Negative (Negative)
[2024-07-13 18:54] LABS: HIV-1/2 Ag & Ab Screen Negative (Negative)
== END 2024-07-13 11:14 | disposition home or self-care (01) ==
LOC: LBO 11:20
PROVIDERS: PCP Nurse Practitioner Adult Health; Visit Provider Nurse Practitioner Adult Health
DX: Z13.1 Encounter for screening for diabetes mellitus (principal); Z13.220 Encounter for screening for lipoid disorders; Z12.31 Encounter for screening mammogram for malignant neoplasm of breast; Z86.32 Personal history of gestational diabetes; D50.9 Iron deficiency anemia, unspecified; R63.8 Other symptoms and signs concerning food and fluid intake; Z11.4 Encounter for screening for human immunodeficiency virus [HIV]; Z11.59 Encounter for screening for other viral diseases
CPT/HCPCS: 36415; 80053; 80061; 82306; 86803; 87389; 82607; 82728; 82746; 83036; 83540; 83550; 84443; 85025

== ENCOUNTER 2024-11-10 05:58 | Emergency (ER) | payer BC, SELFPAY ==
[2024-11-10 06:01] VITALS: BP 150/80; PULSE 73; RESP 16; TEMP 35.7; O2SAT 100
--- NOTE | 2024-11-10 06:01 | W.ED.GENAD ---
Discharge Plan Disposition Patient Disposition: Home Condition: Good Discharge Details Clinical Impression: Dental infection Primary Care Provider: Stephanie Temple ED Provider: Kale Arora Meds and New Rx's Prescriptions: New amoxicillin 500 mg capsule 500 mg PO TID Qty: 20 0RF Continued cholecalciferol (vitamin D3) 1,250 mcg (50,000 unit) capsule 1,250 mcg PO QWEEK Qty: 8 1RF Rx Instructions: Vitamin D deficiency triamcinolone acetonide 0.1 % cream 1 applic topical BID PRN (Reason: skin lesion) Qty: 15 0RF Rx Instructions: apply thin layer to skin lesion when irritated for no more than 14 consecutive days ferrous gluconate 324 mg (37.5 mg iron) tablet 324 mg PO DAILY Qty: 90 3RF Rx Instructions: Iron def anemia ascorbate calcium (vitamin C) 500 mg tablet 500 mg PO DAILY Qty: 90 3RF Rx Instructions: take with iron for optimal absorption Discharge Instructions Additional Instructions: You were seen for dental pain likely related to infection. You should continue acetaminophen or ibuprofen for pain control. You have been started on antibiotic and should notice an improvement in the next 1 to 2 days. Follow-up with your dentist as planned after you obtain insurance. Return to ED for fever, increasing pain or swelling, difficulty breathing, inability to swallow. HPI General Mode of arrival: ambulatory. Date/Time Provider Initiated Documentation: 11/10/24 06:01. Limitations to Documentation: no limitations. Information obtained by: patient and RN notes reviewed. HPI Narrative: Patient presents to ED with right lower tooth and jaw pain. Patient reports symptoms began yesterday. Pain is increased since that time and she is noting some mild swelling under her right jawbone. She has had no fever. She has no difficulty swallowing or breathing. She has a history of dental problems and infections. Currently does not have dental insurance but anticipates obtaining same after December 14 and has already made an appointment to see a dentist. Mostly concerned that she has another infection. Related Data Home Medications ?Medication ?Instructions ?Recorded ?Confirmed ascorbate calcium (vitamin C) 500 500 mg PO DAILY #90 tabs 07/14/24 11/10/24 mg tablet cholecalciferol (vitamin D3) 1,250 1,250 mcg PO QWEEK #8 caps 07/14/24 11/10/24 mcg (50,000 unit) capsule ferrous gluconate 324 mg (37.5 mg 324 mg PO DAILY #90 tabs 07/14/24 11/10/24 iron) tablet triamcinolone acetonide 0.1 % 1 applic topical BID PRN skin 07/14/24 11/10/24 topical cream lesion #15 grams amoxicillin 500 mg capsule 500 mg PO TID #20 caps 11/10/24 Previous Rx's ?Medication ?Instructions ?Recorded ascorbate calcium (vitamin C) 500 500 mg PO DAILY #90 tabs 07/14/24 mg tablet cholecalciferol (vitamin D3) 1,250 1,250 mcg PO QWEEK #8 caps 07/14/24 mcg (50,000 unit) capsule ferrous gluconate 324 mg (37.5 mg 324 mg PO DAILY #90 tabs 07/14/24 iron) tablet triamcinolone acetonide 0.1 % 1 applic topical BID PRN skin 07/14/24 topical cream lesion #15 grams amoxicillin 500 mg capsule 500 mg PO TID #20 caps 11/10/24 Allergies Allergy/AdvReac Type Severity Reaction Status Date / Time erythromycin base AdvReac Severe Nausea Verified 11/10/24 06:03 (Erythromycin Base) General GINA: 4 Exam Narrative Exam Narrative: Const: WDWN female in NAD. VS per triage. HEENT: NC/AT. Normal facial exam. Right lower premolar and molar teeth previously decayed/fractured with roots still present. Tender over the previous first molar. Neck: Supple. Trachea midline. Small tender lymph node right submandibular region. Lungs: Normal respiratory effort. Neuro: A+O x 3. Normal speech, mentation, gait. Cranial nerves II - XII grossly intact. No gross motor or sensory deficit. Medical Decision Making Patient presenting to ED with dental pain that has been worsening over the last 24 hours. Significant percussion tenderness with submandibular lymph node highly suggestive of infection. She has had dental infections previously which have responded to penicillins. Patient will be started on amoxicillin 500 mg 3 times daily for 7 days. She may continue alternating acetaminophen with ibuprofen for pain. She should follow-up with her dentist after December 14 as planned. Return precautions provided. PFSH All Active Problems (Updated 11/10/24 @ 06:09 by Kale Arora MD) Dental infection (Acute) Symptomatic premature ventricular contractions (Acute) 09/09/24 [facility] [place] Cardiology note Iron deficiency anemia (Acute) Vitamin D insufficiency (Acute) Microcytic hypochromic anemia (Acute ~2020) History of gestational diabetes (Acute) Increased body mass index (BMI) (Acute) Surgical History H/O oral surgery S/P VSD repair History of section Family History Mother Neoplasm Father , from [place] in 60s Diabetes Essential hypertension Heart disease Hyperlipidemia Grandfather Heart disease Stroke Substance use disorder Grandfather , Paternal Neoplasm COLON Colon cancer Grandmother Heart disease Dementia Heart failure COPD (chronic obstructive pulmonary disease) Grandmother , Paternal Diabetes Essential hypertension Hyperlipidemia Maternal Uncle Neoplasm COLON Maternal Aunt Heart disease Hyperlipidemia Hypertension Great Maternal Grandmother Neoplasm COLON Paternal Uncle Substance use disorder Colon cancer Paternal Grandmother Uterine cancer Diabetes Hypertension Paternal Aunt Bone cancer Diabetes Heart disease Social History Smoking/Tobacco Use Status: Never Second Hand Exposure: No Smoking risk assessment performed?: Yes Alcohol Intake: never Drug use: Never Substance use type: does not use Counseling given: No Counseling provided: none Adopted: No Caregiver/Support person: No Foster care: No Household members: spouse and children Housing: house Number of Children: 2 number of grandchildren: 0 Communication Needs: None Education Level: high school Do you need help understanding health information?: Never 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) Pets and animals: No Sexually active: Yes Do you think of yourself as: straight/heterosexual Current gender identity: female What is your relationship status?: How often do you talk on the phone with friends or family?: three or more times per week How often do you get together with friends or relatives?: once per week Do you belong to any clubs or organized social groups?: yes Panel score (0-1 are the most socially isolated patients): 3 What type of physical activity do you participate in: none, walking and occasional exercise Sarah Beth/Episcopal: Amish Seatbelt use: always Helmet use: Yes 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
[2024-11-10] MEDS: Amoxicillin 500 MG CAP PO (06:19)
== END 2024-11-10 06:20 | disposition home or self-care (01) ==
LOC: ER 06:17
PROVIDERS: Emergency Provider Emergency Medicine; PCP Nurse Practitioner Adult Health
DX: K04.7 Periapical abscess without sinus (principal)
CPT/HCPCS: 99283